=== PATIENT | female | born 1955 | race Caucasian/White ===

== ENCOUNTER 2020-03-30 10:12 | Day surgery (SDC) | payer MEDICARE, OTHER ==
[2020-03-27 11:05] VITALS: BMI 35.0
[~2020-03-30 10:12] MED LIST: LACTATED RINGERS 1,000 ML IV SCH; LIDOCAINE 1% (10MG/ML) FOR IV START INTRADERMA PRN
[2020-03-30 10:47] VITALS: TEMP 97.5
[2020-03-30 10:48] LABS: Glucose,Whole Blood 124 mg/dL (75-99)
[2020-03-30] MEDS ORDERED: LIDOCAINE 1% INJ 10MG/ML (20 ML MDV) ONE (11:14)
[2020-03-30] MEDS ORDERED: PROPOFOL 10 MG/ML 20 ML VIAL IV ONE (11:14)
[2020-03-30] MEDS ORDERED: MIDAZOLAM 2 MG/2 ML VIAL ONE (11:14)
--- NOTE | 2020-03-30 11:40 | P.PCN ---
Date of Procedure: 03/30/20 Description of Procedure: BRIEF HISTORY: Patient is a 64-year-old female presenting for outpatient EGD for evaluation of heartburn. Patient reports frequent symptoms of indigestion and reflux. PROCEDURE PERFORMED: Esophagogastroduodenoscopy with biopsy. PREOPERATIVE DIAGNOSIS: Heartburn, GERD, reflux. ESTIMATED BLOOD LOSS: Minimal. IV sedation per anesthesia. PROCEDURE: After informed consent was obtained, the patient was brought into the endoscopy unit. IV sedation was administered by Anesthesia under continuous monitoring. Initially the Olympus GIF-190 video endoscope was inserted into the mouth. Esophagus intubated without any difficulty. It was gradually advanced into the stomach and duodenum and carefully examined. The bulb and the second part of the duodenum appeared normal, with biopsies taken. The scope at this time was withdrawn to the stomach, adequately insufflated with air, and upon careful examination, mucosa of the antrum, body, cardia and the fundus appeared normal, except for some mild punctate erythema in the antrum and body suggestive of mild gastritis with biopsies taken. The scope was then withdrawn into the esophagus. The GE junction was located at 38 cm from the incisors, with biopsies taken. The esophagus appeared normal. There were no erosions or ulcerations seen and the patient tolerated the procedure well. IMPRESSION: 1. Mild gastritis antrum body, biopsied. 2. Biopsies of the GE junction and duodenum. RECOMMENDATIONS: The findings of this examination were discussed with the patient. Okay to resume diet. Okay to resume medications. Await pathology from biopsies. Follow up in gastroenterology clinic as previously scheduled.
[2020-03-30 11:55] LABS: Glucose,Whole Blood 128 mg/dL (75-99)
[2020-03-30 11:57] VITALS: RESP 18
[2020-03-30 12:26] VITALS: BP 149/70; PULSE 77
== END 2020-03-30 12:40 | disposition home or self-care (01) ==
LOC: ORWHC2ENDO 10:12
PROVIDERS: ATTEND Internal Medicine
DX: K29.50 Unspecified chronic gastritis without bleeding (principal); K21.9 Gastro-esophageal reflux disease without esophagitis; E11.9 Type 2 diabetes mellitus without complications; I10 Essential (primary) hypertension; E78.5 Hyperlipidemia, unspecified; J45.909 Unspecified asthma, uncomplicated; N28.9 Disorder of kidney and ureter, unspecified; Z88.1 Allergy status to other antibiotic agents; Z88.5 Allergy status to narcotic agent; Z88.8 Allergy status to other drugs, medicaments and biological substances; Z79.899 Other long term (current) drug therapy; Z79.4 Long term (current) use of insulin; Z79.82 Long term (current) use of aspirin; Z95.810 Presence of automatic (implantable) cardiac defibrillator
CPT/HCPCS: 43239; 88305; J2250; J2001; J2704

== ENCOUNTER 2020-05-08 07:50 | Day surgery (SDC) | payer MEDICARE, OTHER ==
[2020-05-04 10:18] VITALS: BMI 38.6
--- NOTE | 2020-05-07 23:51 | P.GSHP ---
History of Present Illness H&P Date: 05/08/20 CHIEF COMPLAINT: Cholecystitis HISTORY OF PRESENT ILLNESS: The patient is a 64-year-old female who presents with history of epigastric including right upper quadrant abdominal pain. She underwent diagnostic studies for her gallbladder. Separately her clinical picture was consistent with cholecystitis. Now she presents for surgical intervention. PAST MEDICAL HISTORY: Please see list PAST SURGICAL HISTORY: Please see list MEDICATIONS: Please see list ALLERGIES: Please see list SOCIAL HISTORY: Please see list FAMILY HISTORY: Please see list REVIEW OF ORGAN SYSTEMS: CONSTITUTIONAL: No reports of fevers or chills. HEENT: Denies any troubles with the vision or hearing. PHYSICAL EXAM: VITAL SIGNS: Afebrile vital signs stable GENERAL: Well-developed pleasant in no acute distress. HEENT: No scleral icterus. Extraocular movements grossly intact. Moist buccal mucosa. NECK: Supple without lymphadenopathy. CHEST: Unlabored respirations. Equal bilateral excursions. CARDIOVASCULAR: Distal 2+ pulses. ABDOMEN: Soft, nondistended. Tender along the epigastrium and right upper quadrant. MUSCULOSKELETAL: No clubbing, cyanosis, or edema. NEURO: Cranial nerves II to XII within normal limits. No focal or lateralizing signs. PSYCH: Alert and oriented to person, place and time. SKIN: Well-perfused good skin turgor. ASSESSMENT: 1. Epigastric and right upper quadrant abdominal pain 2. Chronic cholecystitis 3. Symptomatic gallstones. PLAN: 1. Will need a robotic cholecystectomy possible open. Benefits and risks were described. 2. Heparin for DVT prophylaxis 5000 units. 3. Antibiotic prophylaxis. Past Medical History Past Medical History: Asthma, Cancer, Diabetes Mellitus, GERD/Reflux, Hyperlipidemia, Hypertension, Osteoarthritis (OA), Renal Disease Additional Past Medical History / Comment(s): TYPE 2 DIABETIC, BREAST CANCER , LUNG CANCER 2015 , LOWER KIDNEY FUNCTION " PANCREATITIS, LYMPH EDEMA LEFT ARM History of Any Multi-Drug Resistant Organisms: MRSA Date of last positivie culture/infection: 2013 MDRO Source:: CHEST AREA Past Surgical History: AICD, Section, Heart Catheterization, Tonsillectomy Additional Past Surgical History / Comment(s): LEFT MASTECTOMY, PACEMAKER/DEFIB , MED PORT PUT IN AND REMOVED, MED PORT PUT IN Past Anesthesia/Blood Transfusion Reactions: No Reported Reaction Type of Cardiac Device: AICD Device Placement Date:: JUN 2016 Smoking Status: Never smoker - Past Family History Mother Family Medical History: No Reported History Medications and Allergies Home Medications Medication Instructions Recorded Confirmed Type Albuterol Sulfate [Proventil Hfa] 1 puff INHALATION Q4-6H PRN 03/27/20 05/04/20 History Aspirin [Children's Aspirin] 81 mg PO DAILY 03/27/20 05/04/20 History Dicyclomine [Bentyl] 10 mg PO QID PRN 03/27/20 05/04/20 History Fenofibrate 160 mg PO DAILY 03/27/20 05/04/20 History Insulin NPH Hum/Reg Insulin Hm 30 unit SQ AC-LUNCH 03/27/20 05/04/20 History [NovoLIN 70-30 100 UNIT/ML VIAL] Insulin NPH Hum/Reg Insulin Hm 40 - 45 unit SQ AC-BRKFST 03/27/20 05/04/20 History [NovoLIN 70-30 100 UNIT/ML VIAL] Insulin NPH Hum/Reg Insulin Hm 50 unit SQ AC-SUPPER 03/27/20 05/04/20 History [NovoLIN 70-30 100 UNIT/ML VIAL] Metoprolol Succinate (ER) [Toprol 50 mg PO 1800 03/27/20 05/04/20 History XL] Triamterene/Hydrochlorothiazid 1 tab PO DAILY 03/27/20 05/04/20 History [Maxzide 75-50] Valsartan 40 mg PO DAILY 03/27/20 05/04/20 History Famotidine [Pepcid] 20 mg PO BID 05/04/20 05/04/20 History Montelukast [Singulair] 10 mg PO HS 05/04/20 05/04/20 History Ondansetron [Zofran] 4 mg PO Q12HR PRN 05/04/20 05/04/20 History Allergies Allergy/AdvReac Type Severity Reaction Status Date / Time ciprofloxacin Allergy Abdominal Verified 05/04/20 09:45 Pain codeine Allergy Nausea Verified 03/30/20 10:31 ezetimibe Allergy FACE Verified 03/30/20 10:31 TINGLED " lisinopril Allergy Unknown Verified 03/30/20 10:31
[~2020-05-08 07:50] MED LIST changes: +ACETAMINOPHEN TAB 500 MG TAB PO STA; +DEXAMETHASONE SOD PHOSPHATE 10 MG/ML 1 ML VIAL IV ONE; +GABAPENTIN 300 MG CAP PO ONE; +HEPARIN SODIUM,PORCINE 5,000 UNIT/ML 1 ML VIAL SQ ONE; +INDOCYANINE GREEN 25 MG VIAL IV ONE; -LACTATED RINGERS 1,000 ML IV SCH; -LIDOCAINE 1% (10MG/ML) FOR IV START INTRADERMA PRN; +MIDAZOLAM 2 MG/2 ML VIAL IV PRN; +ONDANSETRON 4 MG/2 ML VIAL IVP ONE
[2020-05-08 08:28] LABS: Glucose,Whole Blood 68 mg/dL (75-99)
[2020-05-08] MEDS: LACTATED RINGERS 1,000 ML IV SCH ×2 (08:30→09:06)
[2020-05-08] MEDS ORDERED: ONDANSETRON 4 MG/2 ML VIAL ONE (08:34)
[2020-05-08] MEDS ORDERED: ACETAMINOPHEN TAB 500 MG TAB ONE (08:34)
[2020-05-08] MEDS ORDERED: HEPARIN SODIUM,PORCINE 5,000 UNIT/ML 1 ML VIAL ONE (08:36)
[2020-05-08] MEDS ORDERED: DEXTROSE 50% SYRINGE 50 ML IVP ONE (08:36)
[2020-05-08 08:44] LABS: Basophils # (A) 0.1 k/uL (0-0.2); Basophils % (A) 1 %; Eosinophils # (A) 0.4 k/uL (0-0.7); Eosinophils % (A) 6 %; HCT 39.4 % (34.0-46.0); HGB 12.3 gm/dL (11.4-16.0); Hypochromasia Moderate; Lymphocytes # (A) 2.1 k/uL (1.0-4.8); Lymphocytes % (A) 31 %; MCH 27.9 pg (25.0-35.0); MCHC 31.2 g/dL (31.0-37.0); MCV 89.7 fL (80.0-100.0); Mean Platelet Volume 7.2; Monocytes # (A) 0.4 k/uL (0-1.0); Monocytes % (A) 6 %; Neutrophils # (A) 3.5 k/uL (1.3-7.7); Neutrophils % (A) 53 %; Platelet Count 271 k/uL (150-450); RBC 4.39 m/uL (3.80-5.40); RDW 15.5 % (11.5-15.5); WBC 6.7 k/uL (3.8-10.6)
[2020-05-08 08:54] LABS: Albumin 4.2 g/dL (3.5-5.0); Calcium 10.5 mg/dL (8.4-10.2); Total Bilirubin 0.8 mg/dL (0.2-1.3); Total Protein 7.9 g/dL (6.3-8.2)
[2020-05-08 08:55] LABS: Potassium 5.9 mmol/L (3.5-5.1)
[2020-05-08] MEDS ORDERED: SUCCINYLCHOLINE CHLORIDE 100 MG/5 ML SYR IV ONE (09:03)
[2020-05-08] MEDS ORDERED: GLYCOPYRROLATE 0.2 MG/ML 2 ML VIAL ONE (09:03)
[2020-05-08] MEDS ORDERED: PHENYLEPHRINE-0.9% NACL SYG 1 MG/10 ML SYRINGE ONE (09:03)
[2020-05-08] MEDS ORDERED: PROPOFOL 10 MG/ML 20 ML VIAL IV ONE (09:03)
[2020-05-08] MEDS ORDERED: NEOSTIGMINE 1 MG/ML 10 ML VIAL ONE (09:03)
[2020-05-08] MEDS ORDERED: LIDOCAINE 1% INJ 10MG/ML (20 ML MDV) ONE (09:03)
[2020-05-08] MEDS ORDERED: ROCURONIUM BROMIDE 10 MG/ML 5 ML VIAL IV ONE (09:03)
[2020-05-08] MEDS ORDERED: MIDAZOLAM 2 MG/2 ML VIAL ONE (09:03)
[2020-05-08] MEDS ORDERED: fentaNYL (PF) 50 MCG/ML 2 ML AMP ONE (09:03)
[2020-05-08] MEDS ORDERED: INDOCYANINE GREEN 25 MG VIAL IV ONE (09:03)
[2020-05-08] MEDS ORDERED: LIDOCAINE 1%-EPI 1:100,000 20 ML VIAL SQ ONE (09:08)
[2020-05-08 10:41] VITALS: TEMP 97.8
[2020-05-08 10:42] LABS: Glucose,Whole Blood 123 mg/dL (75-99)
[2020-05-08] MEDS: fentaNYL (PF) 50 MCG/ML 2 ML AMP IV PRN ×2 (11:08→11:25)
--- NOTE | 2020-05-08 11:09 | P.OP ---
Date of Procedure: 05/08/20 Description of Procedure: SURGEON: RENETTA CUNNINGHAM MD PREOPERATIVE DIAGNOSES: 1. Symptomatic gallstone with cholecystitis 2. Diabetes type 2, controlled 3. Hypertensive heart disease 4. Chronic obstructive pulmonary disease 5. History of lung cancer 6. History of breast cancer 7. Gastroesophageal reflux disease 8. Hyperlipidemia 9. Pacemaker in situ 10. Chronic kidney disease, stage II 11. Hyperkalemia, pre-existing POSTOPERATIVE DIAGNOSES: 1. Symptomatic gallstone with cholecystitis with hydrops 2. Diabetes type 2, controlled 3. Hypertensive heart disease 4. Chronic obstructive pulmonary disease 5. History of lung cancer 6. History of breast cancer 7. Gastroesophageal reflux disease 8. Hyperlipidemia 9. Pacemaker in situ 10. Chronic kidney disease, stage II 11. Hyperkalemia, pre-existing 12. Pericholecystic peritoneal dhesions OPERATION: Robotic-assisted da Suzi Xi laparoscopic cholecystectomy, multiport with FIREFLY ESTIMATED BLOOD LOSS: 10 mL. SPECIMENS REMOVED: Gallbladder. COMPLICATIONS: None. OPERATIVE FINDINGS: 1. Moderate pericholecystic adhesions along gallbladder fundus and body including hydropic gallbladder INDICATIONS: The patient is a 64-year-old female who presents with symptomatic gallstones. Robotic assisted laparoscopic approach was described. Benefits and risks of the procedure including but not limited to bleeding, infection, injury to the biliary tree was described. Informed consent was obtained. DESCRIPTION OF PROCEDURE: Patient was brought to the operating room, placed in supine position. After general induction, the abdomen had been prepped and draped in standard sterile fashion. The robotic da Suzi XI system was primed. After a timeout protocol was performed, the patient had been prepped and draped in standard sterile fashion. The patient was injected with indocyanine green. A 5 mm 0 degrees laparoscopic trocar entry was performed along the left upper quadrant. The abdomen insufflated to 15 mmHg pressure which was tolerated well. Diagnostic laparoscopy demonstrated no injury to bowel viscera or mesentery. The liver surface was unremarkable. Next, two 8 mm robotic ports were placed along the right upper abdomen. The camera 8-mm port was maintained along the epigastrium. Another 8 mm port was placed along the left upper abdominal wall after exchanging the 5 mm port. Please note that the ports were placed at least 10 to 15 cm away from the target anatomy of the gallbladder. The robot was docked along the left lateral abdomen. The patient was repositioned in reverse Trendelenburg position. Using a grasper for arm 3, a grasper for arm 4, including hook cautery for arm 1, the robotic system was docked and primed as described. Instruments were interchanged by the culture media laboratory assistant including hook cautery, Bovie cautery and clip appliers. I had sat at the console. A large hydropic gallbladder was identified occupying the right upper quadrant. Moderate pericholecystic adhesions were identified along the body including infundibulum of the gallbladder. Adhesions were lysed using hook cautery. The gallbladder fundus was retracted towards the dome of the liver. Initial attention was brought to the infundibulum including cystic lymph node. Initial dissection was performed over the cystic lymph node at the infundibulum using hook cautery. The infundibulum was retracted laterally to expose the cystic duct away from the common bile duct. The cystic duct including the cystic artery were dissected free from its surrounding tissue. FIREFLY was used to identify the cystic artery and cystic structures. A critical view of safety was obtained. Large PLASTIC clips were used throughout the entire case. Using a clip technical services rep, 2 clips were placed at the junction of the infundibulum and cystic duct. The cystic duct was divided between clips. Next, the cystic artery was similarly clipped and cauterized. Electro-Bovie cautery was used to remove the gallbladder from the hepatic fossa. Hemostasis was checked and found to be adequate. The robot was undocked. I re-scrubbed into the case. Using a 15 mm Endo Catch bag via the left upper quadrant incision, which was widened, the specimen was removed from the abdominal cavity. All pneumoperitoneum instruments were evacuated from the abdominal cavity. The incisions were reapproximated using 4-0 Monocryl in an interrupted subcuticular fashion. Fascial defect of the left upper quadrant was oversewn using 0 Vicryl and Emanuel Wyatt. Please note along the trocar sites, local anesthetic was placed as a field block prior to insertion of all instruments. Liquid glue was applied to the skin. At the end of the procedure needle, sponge, and instrument count had been verified correct by the rn neurosurgical. The patient was transferred to postanesthesia care unit in stable condition. Intraoperative films were shared with the patient's family who were pleased with the level of care. Plan - Discharge Summary Discharge Rx Participant: Yes New Discharge Prescriptions: Continue Valsartan 40 mg PO DAILY Insulin NPH Hum/Reg Insulin Hm [NovoLIN 70-30 100 UNIT/ML VIAL] 30 unit SQ AC-LUNCH Insulin NPH Hum/Reg Insulin Hm [NovoLIN 70-30 100 UNIT/ML VIAL] 40 - 45 unit SQ AC-BRKFST Insulin NPH Hum/Reg Insulin Hm [NovoLIN 70-30 100 UNIT/ML VIAL] 42 unit SQ AC-SUPPER Albuterol Sulfate [Proventil Hfa] 1 puff INHALATION Q4-6H PRN PRN Reason: Wheezing,SHORTNESS OF BREATH Metoprolol Succinate (ER) [Toprol XL] 50 mg PO 1800 Triamterene/Hydrochlorothiazid [Maxzide 75-50] 1 tab PO DAILY Fenofibrate 160 mg PO DAILY Dicyclomine [Bentyl] 10 mg PO QID PRN PRN Reason: ABDOMINAL PAIN Aspirin [Children's Aspirin] 81 mg PO DAILY Ondansetron [Zofran] 4 mg PO Q12HR PRN PRN Reason: Nausea Montelukast [Singulair] 10 mg PO HS Famotidine [Pepcid] 20 mg PO BID Discharge Medication List Albuterol Sulfate [Proventil Hfa] 1 puff INHALATION Q4-6H PRN 03/27/20 [History] Aspirin [Children's Aspirin] 81 mg PO DAILY 03/27/20 [History] Dicyclomine [Bentyl] 10 mg PO QID PRN 03/27/20 [History] Fenofibrate 160 mg PO DAILY 03/27/20 [History] Insulin NPH Hum/Reg Insulin Hm [NovoLIN 70-30 100 UNIT/ML VIAL] 30 unit SQ AC- LUNCH 03/27/20 [History] Insulin NPH Hum/Reg Insulin Hm [NovoLIN 70-30 100 UNIT/ML VIAL] 40 - 45 unit SQ AC-BRKFST 03/27/20 [History] Insulin NPH Hum/Reg Insulin Hm [NovoLIN 70-30 100 UNIT/ML VIAL] 42 unit SQ AC- SUPPER 03/27/20 [History] Metoprolol Succinate (ER) [Toprol XL] 50 mg PO 1800 03/27/20 [History] Triamterene/Hydrochlorothiazid [Maxzide 75-50] 1 tab PO DAILY 03/27/20 [History] Valsartan 40 mg PO DAILY 03/27/20 [History] Famotidine [Pepcid] 20 mg PO BID 05/04/20 [History] Montelukast [Singulair] 10 mg PO HS 05/04/20 [History] Ondansetron [Zofran] 4 mg PO Q12HR PRN 05/04/20 [History] Follow up Appointment(s)/Referral(s): Renetta Cunningham MD [STAFF PHYSICIAN] - 05/12/20 Patient Instructions/Handouts: Laparoscopic Cholecystectomy (DC), Abdominal Binder (DC) Activity/Diet/Wound Care/Special Instructions: Wear abdominal binder for comfort No lifting over 10 pounds in 2 weeks until May 22. January shower. No bath tub soaks for two weeks until May 22. Diet as tolerated. Use Tylenol scheduled for the next 24-48 hours for best pain relief. Use ice along incisions for the today to prevent swelling. Discharge Disposition: HOME SELF-CARE
[2020-05-08 12:46] LABS: Glucose,Whole Blood 157 mg/dL (75-99)
[2020-05-08] MEDS ORDERED: ACETAMINOPHEN TAB 325 MG TAB ONE (13:43)
[2020-05-08] MEDS ORDERED: ACETAMINOPHEN TAB 325 MG TAB PO ONE (13:47)
[2020-05-08 14:03] VITALS: BP 151/88; PULSE 95; RESP 16
[2020-05-08] MEDS ORDERED: SODIUM CHLORIDE 0.9% 1,000 ML IV ONE (14:03)
== END 2020-05-08 15:21 | disposition home or self-care (01) ==
LOC: OR 07:50
PROVIDERS: ATTEND Surgery Plastic and Reconstructive Surgery
DX: K80.10 Calculus of gallbladder with chronic cholecystitis without obstruction (principal); I12.9 Hypertensive chronic kidney disease with stage 1 through stage 4 chronic kidney disease, or unspecified chronic kidney disease; E11.22 Type 2 diabetes mellitus with diabetic chronic kidney disease; N18.2 Chronic kidney disease, stage 2 (mild); K21.9 Gastro-esophageal reflux disease without esophagitis; E78.5 Hyperlipidemia, unspecified; M19.90 Unspecified osteoarthritis, unspecified site; E87.5 Hyperkalemia; J44.9 Chronic obstructive pulmonary disease, unspecified; Z85.3 Personal history of malignant neoplasm of breast; Z85.118 Personal history of other malignant neoplasm of bronchus and lung; Z98.890 Other specified postprocedural states; Z95.810 Presence of automatic (implantable) cardiac defibrillator; Z79.82 Long term (current) use of aspirin; Z79.4 Long term (current) use of insulin; Z79.899 Other long term (current) drug therapy; Z88.1 Allergy status to other antibiotic agents; Z88.5 Allergy status to narcotic agent; Z88.8 Allergy status to other drugs, medicaments and biological substances; Z79.2 Long term (current) use of antibiotics
CPT/HCPCS: 80053; 84132; 85025; 47563; J2250; J1644; J1100; J2710; J0690; J2405; J2001; J3010; J2370; J0330; J2704; 88304